=== PATIENT | male | born 1980 | race Caucasian/White ===

== ENCOUNTER 2024-09-20 07:50 | Emergency (ER) | payer BC, OTHER ==
[2024-09-20 07:57] VITALS: BP 130/90; PULSE 68; RESP 18; TEMP 98.5; BMI 28.8
[2024-09-20] MEDS ORDERED: ACETAMINOPHEN 325 MG TABLET (FP) ONE (08:35)
[2024-09-20] MEDS ORDERED: LIDOCAINE 5% TOPICAL PATCH ONE (08:35)
[2024-09-20] MEDS: LIDOCAINE 5% TOPICAL PATCH TP ONE (08:37)
[2024-09-20] MEDS: ACETAMINOPHEN 325 MG TABLET (FP) PO ONE (08:37)
[2024-09-20] MEDS ORDERED: LIDOCAINE PATCH REMOVAL MC SCH (22:00)
== END 2024-09-20 08:47 | disposition home or self-care (01) ==
LOC: FER 07:50
DX: M25.551 Pain in right hip (principal)
CPT/HCPCS: 99283-25